=== PATIENT | female | born 1955 | race Caucasian/White ===

== ENCOUNTER → 2018-12-16 | Outpatient (CLI) | payer MEDICARE, OTHER | LOC: RAD 08:05 | PROVIDERS: ATTEND Orthopaedic Surgery | DX: Z01.818 Encounter for other preprocedural examination (principal); M19.041 Primary osteoarthritis, right hand ==

== ENCOUNTER → 2019-01-16 | Day surgery (SDC) | payer MEDICARE, OTHER | LOC: AMB 08:00 | PROVIDERS: ATTEND Orthopaedic Surgery | DX: Z01.812 Encounter for preprocedural laboratory examination (principal); Z53.9 Procedure and treatment not carried out, unspecified reason ==

== ENCOUNTER 2019-03-14 05:39 | Day surgery (SDC) | payer MEDICARE, OTHER ==
[2019-03-14] MEDS ORDERED: BUPIVACAINE 0.25% INJ 30 ML VIAL INJ ONE (08:56)
[2019-03-14] MEDS ORDERED: ceFAZolin SODIUM 1 GM VIAL ONE ×2 (08:56→10:49)
[2019-03-14] MEDS ORDERED: VANCOMYCIN HCL INJ 1,000 MG VIAL IVPB ONE (08:57)
[2019-03-14] MEDS ORDERED: LIDOCAINE 1% 10 ML VIAL INJ ONE ×2 (08:57→10:00)
[2019-03-14] MEDS ORDERED: PROPOFOL 200 MG/20 ML VIAL IV ONE (10:00)
[2019-03-14] MEDS ORDERED: SODIUM CHL 0.9% 100ML MINI-BAG 100 ML IVPB ONE (10:48)
[2019-03-14] MEDS ORDERED: LACTATED RINGERS 1,000 ML ONE (10:48)
[2019-03-14] MEDS ORDERED: fentaNYL CITRATE INJ 50 MCG/ML AMP ONE (13:37)
[2019-03-14] MEDS ORDERED: methylPREDNISolone ACETATE 80 MG/ML VIAL ONE (13:59)
[2019-03-14 14:39] VITALS: O2SAT 97
[2019-03-14 15:12] VITALS: BP 173/85; TEMP 97
--- NOTE | 2019-04-03 08:40 | OP ---
DATE OF PROCEDURE: 03/14/19 PREOPERATIVE DIAGNOSIS: 1. Right carpal tunnel syndrome. POSTOPERATIVE DIAGNOSIS: 1. Right carpal tunnel syndrome. PROCEDURE: 1. Carpal tunnel release. SURGEON: Lele Bah MD. [employer] ARCHITECT: Mansoor Rodgers CST, SA-C. ANESTHESIA: Local with sedation. COMPLICATIONS: None. FINDINGS: Thickening of the transverse carpal ligament. INDICATION: Ms. Corbin has a history of numbness in the hands for which she has tried conservative measures. Unfortunately, she has been unable to get relief with conservative measures. Because of that, she has requested operative intervention. After discussing the risks, benefits and alternatives to that, the patient has given informed consent for carpal tunnel release. PROCEDURE: The patient was brought to the Operating Room and placed in the supine position. Sedation was administered and local anesthetic was injected into the operative area under sterile conditions. After the injection of anesthetic, the arm was sterilely prepped and draped. A longitudinal incision was made directly overlying the transverse carpal ligament and blunt dissection was carried down to the ligament. The transverse carpal ligament was sharply transected along its length and a [place] elevator was used to ensure complete release of the ligament. Once release had been confirmed, the wound was thoroughly irrigated and the wound was closed with Nylon suture. A sterile dressing was placed and the patient was taken to the Day Surgery Unit. POSTOPERATIVE PLAN: The patient has been encouraged to do range of motion of the digits and will followup with us in two days. #[id number] MTDD
== END 2019-03-14 15:10 | disposition home or self-care (01) ==
LOC: AMB 05:39
PROVIDERS: ATTEND Orthopaedic Surgery
DX: G56.01 Carpal tunnel syndrome, right upper limb (principal); M18.11 Unilateral primary osteoarthritis of first carpometacarpal joint, right hand; Z79.899 Other long term (current) drug therapy
CPT/HCPCS: 01810; 64721; J0690; J1030; J3010; J3370; J3490; J7050; J7120